=== PATIENT | male | born 1975 | race Caucasian/White ===

== ENCOUNTER 2018-11-01 11:33 | Emergency (ER) | payer MEDICAID ==
[~2018-11-01] VITALS: Ht 190.5 cm; Wt 92.0 kg
[2018-11-01 11:36] VITALS: BP 125/77
[2018-11-01] MEDS ORDERED: cholesterol (11:51)
--- NOTE | 2018-11-01 12:05 | NUR ---
Patient given discharge instructions and they have confirmed that they understand the instructions. Patient ambulatory with steady gait.
== END 2018-11-01 12:51 | disposition home or self-care (01) ==
LOC: ED 12:40
DX: G56.22 Lesion of ulnar nerve, left upper limb (principal); Z88.0 Allergy status to penicillin; Z21 Asymptomatic human immunodeficiency virus [HIV] infection status; Z86.59 Personal history of other mental and behavioral disorders
CPT/HCPCS: 99283

== ENCOUNTER 2018-11-19 06:10 | Inpatient (IN) | payer MEDICAID, OTHER ==
[~2018-11-19] VITALS: Ht 193 cm; Wt 99.1 kg
[~2018-11-19 06:10] MED LIST: cholesterol
[2018-11-19] MEDS ORDERED: SODIUM CHLORIDE 0.9% 1,000ML IVBOLUS ONE ×2 (06:30→09:00)
[2018-11-19] MEDS ORDERED: SODIUM CHLORIDE FLUSH 10ML SYR IVF ONE (06:30)
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
--- NOTE | 2018-11-19 06:49 | NUR ---
RECEIVED REPORT FROM CLOTILDE SANCHEZ.
[2018-11-19 06:51] LABS: ALANINE AMINOTRANSFERASE 225 U/L (12-78); ALBUMIN 3.1 g/dL (3.4-5.0); ANION GAP 7 mmol/L (5-15); CHLORIDE 110 mmol/L (98-107); CREATININE 1.57 mg/dL (0.7-1.3)
[2018-11-19 06:55] LABS: ALKALINE PHOSPHATASE 344 U/L (45-117); BILIRUBIN,TOTAL 0.7 mg/dL (0.2-1.0); TOTAL PROTEIN 5.6 g/dL (6.4-8.2); TROPONIN I < 0.015 ng/mL (0.000-0.045)
--- NOTE | 2018-11-19 07:00 | NUR ---
PT RESTING IN BED.
[2018-11-19 07:46] LABS: INTERNATIONAL NORMALIZED RATIO 1.29 (0.93-1.1); PROTHROMBIN TIME 13.4 Seconds (9.6-11.5)
[2018-11-19] MEDS ORDERED: OMNIPAQUE 350 MG/ML, 100ML BOTTLE ONE (07:52)
[2018-11-19 08:16] LABS: D-DIMER 35.2 ug/mlFEU (0.00-0.52)
[2018-11-19 08:26] LABS: MEAN CORPUSCULAR HEMOGLOBIN 30.3 pg (27.5-34.5); MEAN CORPUSCULAR HGB CONC 33.3 g/dL (33.2-36.2); MEAN CORPUSCULAR VOLUME 91.2 fL (81-97); PLATELET COUNT 109 x10^3/uL (130-400); RED BLOOD COUNT 4.72 x10^6/uL (4.38-5.82); RED CELL DISTRIBUTION WIDTH 14.7 % (9.4-14.8)
[2018-11-19 08:27] LABS: MD YES
--- NOTE | 2018-11-19 08:35 | NUR ---
blood cultures ordered and 3rd liter of fluid started. urine walked to lab.
[2018-11-19 08:50] LABS: BAND#(MANUAL) 0.15 x10^3/uL; BANDS%(MANUAL) 10 % (0-7); EOS#(MANUAL) 0.03 x10^3/uL (0.0-0.4); EOS% (MANUAL) 2 % (1-7); LYMPH#(MANUAL) 0.12 x10^3/uL (1-3.4); LYMPHS% (MANUAL) 8 % (22-44); MONOS#(MANUAL) 0.03 x10^3/uL (0.3-2.7); MONOS% (MANUAL) 2 % (2-9); MYELOCYTES# (MANUAL) 0.03 x10^3/uL (0-0); MYELOCYTES% (MANUAL) 2 % (0-0); NRBC % (MANUAL) 2 % (0-1); SEG#(MANUAL) 1.14 x10^3/uL (1.8-6.8); SEGS% (MANUAL) 76 % (42-75)
--- NOTE | 2018-11-19 08:53 | NUR ---
blood cultures drawn x 2.
[2018-11-19 08:55] LABS: <RBC MORPHOLOGY> NORMAL
[2018-11-19 08:56] LABS: <PLATELET ESTIMATE> DECREASED; <PLT MORPHOLOGY> NORMAL PLT MORPH
[2018-11-19 08:56] LABS: AMPHETAMINE SCREEN, URINE Positive (Negative); BARBITURATE SCREEN, URINE Negative (Negative); BENZODIAZEPINE SCREEN, URINE Negative (Negative); CANNABINOID SCREEN, URINE Positive (Negative); COCAINE SCREEN, URINE Negative (Negative); METHADONE SCREEN, URINE Negative (Negative); OPIATE SCREEN, URINE Negative (Negative)
[2018-11-19] MEDS ORDERED: CEFTRIAXONE PMX 1GM/50ML 50 ML IVPB ONE (09:00)
[2018-11-19] MEDS ORDERED: CEFTRIAXONE PMX 1GM/50ML 50 ML ONE (09:00)
--- NOTE | 2018-11-19 09:03 | NUR ---
ANTIBIOTICS HUNG PER MD ORDER.
[2018-11-19 09:22] LABS: ALBUMIN 3.1 g/dL (3.4-5.0); BILIRUBIN, DIRECT 0.4 mg/dL (0.1-0.2)
[2018-11-19 09:24] LABS: BILIRUBIN,INDIRECT 0.3 mg/dL (0.0-2.0); BILIRUBIN,TOTAL 0.7 mg/dL (0.2-1.0); TOTAL PROTEIN 5.6 g/dL (6.4-8.2)
[2018-11-19] MEDS ORDERED: ABAC1TAB14 PO (09:31)
--- NOTE | 2018-11-19 09:36 | NUR ---
DR. ESCOBAR AT BEDSIDE.
[2018-11-19 09:43] LABS: CULTURE INDICATED? NO; MICROSCOPIC AUTO
--- NOTE | 2018-11-19 10:18 | NUR ---
PT GIVEN WATER AND TOLERATING WATER. VITALS ENTERED. PT RESTING IN BED. 3RD LITER COMPLETE.D
--- NOTE | 2018-11-19 10:40 | NUR ---
PT AWAITING BED FOR CCU. PT RESTING IN BED AT THIS TIME.
--- NOTE | 2018-11-19 11:22 | NUR ---
PT SLEEPING IN BED AT THIS TIME.
--- NOTE | 2018-11-19 12:00 | NUR ---
REPORT RECEIVED FROM DANIEL DELAROSA AT BEDSIDE. PT SLEEPING, RESPS EVEN AND UNLABORED. NSR ON SUPERVISOR YARD WITH NO ECTOPY NOTED. THIS RN TO ASSUME CARE AT THIS TIME.
--- NOTE | 2018-11-19 12:02 | NUR ---
report given to jana perkins
--- NOTE | 2018-11-19 12:30 | NUR ---
HOSPITALIST REQUESTS CENTRAL LINE PLACEMENT, PT MOVED TO TRAUMA 2 FOR LINE PLACEMENT. PT PLACED ON HOSPITAL BED.
--- NOTE | 2018-11-19 12:56 | NUR ---
HOSPITALIST MD SMITHU AT BEDSIDE TO ASSESS THE PATIENT AT THIS TIME. CENTRAL LINE PLACEMENT ON HOLD PER MD AT THIS TIME. PT IS A&OX4, RESPS EVEN AND UNLABORED, SINUS TACH RATE 90'S WITH NO ECTOPY ON MONITOR. PT'S ONLY COMPLAINT AT THIS TIME IS BILATERAL HAND PAIN. ALL MONITORS IN PLACE. PT CONVERSING WITH MD SAUCEDA, PT SPEAKING IN FULL SENTENCES WITHOUT DIFFICULTY.
[2018-11-19] MEDS ORDERED: NITROGLYCERIN 0.4 MG/SPRAY SL PRN (13:00)
[2018-11-19] MEDS ORDERED: VANCOMYCIN PER PHARMACY MC PRN (13:00)
[2018-11-19] MEDS ORDERED: PROMETHAZINE 25 MG/ML, 1ML IM PRN (13:00)
[2018-11-19] MEDS ORDERED: ONDANSETRON ODT 4 MG PO PRN (13:00)
[2018-11-19] MEDS ORDERED: PHARMACY MAY ADJ FOR RENAL FX MC PRN (13:00)
[2018-11-19] MEDS ORDERED: NITROGLYCERIN 0.4 MG BOTTLE (25 TABS) SL PRN (13:00)
[2018-11-19] MEDS ORDERED: VANCOMYCIN PMX 1GM/200ML 200 ML IV ONE (13:00)
[2018-11-19] MEDS ORDERED: LORazepam 2 MG/ML, 1ML IVPush PRN (13:00)
--- NOTE | 2018-11-19 13:00 | NUR ---
this RN discussed d dimer result with MD Guardado and MD Bhandari. Per MD Bhandari, CT aorta has ruled out PE.
--- NOTE | 2018-11-19 13:38 | NUR ---
report given to DANIEL Madrigal. pt awaiting transport to room 425.
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
[2018-11-19] MEDS: SODIUM CHLORIDE 0.9% 1,000 ML IV SCH (14:39)
[2018-11-19] MEDS: HEPARIN 5,000 UNITS/ML, 1ML SQ SCH ×2 (14:49→23:07)
[2018-11-19] MEDS: PIPERACILLIN/TAZO/PMX 3.375GM 50 ML IV SCH ×2 (14:49→21:15)
[2018-11-19 14:55] VITALS: BP 110/76
[2018-11-19] MEDS ORDERED: PHARMACOKINETIC MONITORING MC PRN (16:00)
[2018-11-19] MEDS: VANCOMYCIN 2,000 MG in SODIUM CHLORIDE 0.9% 500 ML IV SCH (16:08)
[2018-11-19] MEDS: OXYcodone IR 5MG TABLET PO PRN ×2 (16:08→21:12)
[2018-11-19 17:09] LABS: TROPONIN I 0.018 ng/mL (0.000-0.045)
[2018-11-19] MEDS ORDERED: GLUCAGON 1 MG IM PRN (17:30)
[2018-11-19] MEDS ORDERED: DEXTROSE 50%, 50ML SYRINGE IVPush PRN (17:30)
[2018-11-19] MEDS ORDERED: DEXTROSE 4 GM TAB.CHEW PO PRN (17:30)
[2018-11-19] MEDS ORDERED: MORPHINE SULFATE 4 MG/ML, 1ML IVPush ONE (18:00)
[2018-11-19] MEDS: SODIUM CHLORIDE FLUSH 10ML SYR IVF SCH (21:21)
[2018-11-19] MEDS: INSULIN LISPRO 100 UNITS/ML, PEN SQ-INSULIN SCH (21:21)
[2018-11-19 21:28] VITALS: BP 99/63
[2018-11-19 21:51] LABS: TROPONIN I 0.023 ng/mL (0.000-0.045)
[2018-11-20] MEDS: SODIUM CHLORIDE 0.9% 1,000 ML IV SCH ×2 (01:27→09:29)
[2018-11-20 01:30] VITALS: BP 89/55
[2018-11-20] MEDS ORDERED: SODIUM CHLORIDE 0.9%, 500ML IVBOLUS ONE (02:00)
[2018-11-20 02:04] VITALS: BP 95/60
[2018-11-20] MEDS: PIPERACILLIN/TAZO/PMX 3.375GM 50 ML IV SCH ×4 (03:07→20:42)
[2018-11-20] MEDS: VANCOMYCIN 2,000 MG in SODIUM CHLORIDE 0.9% 500 ML IV SCH (04:24)
[2018-11-20 05:49] LABS: MEAN CORPUSCULAR HEMOGLOBIN 31.1 pg (27.5-34.5); MEAN CORPUSCULAR HGB CONC 33.9 g/dL (33.2-36.2); MEAN CORPUSCULAR VOLUME 91.7 fL (81-97); MEAN PLATELET VOLUME 9.4 fL (7.4-10.4); PLATELET COUNT 103 x10^3/uL (130-400); RED BLOOD COUNT 4.38 x10^6/uL (4.38-5.82); RED CELL DISTRIBUTION WIDTH 15.1 % (9.4-14.8)
[2018-11-20 06:12] LABS: CHLORIDE 112 mmol/L (98-107)
[2018-11-20 06:20] LABS: ALANINE AMINOTRANSFERASE 186 U/L (12-78); ALBUMIN 2.5 g/dL (3.4-5.0); ALKALINE PHOSPHATASE 94 U/L (45-117); ANION GAP 6 mmol/L (5-15); BILIRUBIN,TOTAL 0.5 mg/dL (0.2-1.0); CALCIUM 7.4 mg/dL (8.5-10.1); CHOLESTEROL, TOTAL 84 mg/dL (140-239); CREATININE 1.03 mg/dL (0.7-1.3); HDL CHOL % 50 % (26-37); HDL CHOLESTEROL (DIRECT) 42 mg/dL (40-60); LDL CHOLESTEROL,CALCULATED 21 mg/dL (54-169); LDL/HDL RATIO 0.5 (0.5-3.0); TOTAL IRON BINDING CAPACITY 252 mcg/dL (250-450); TOTAL PROTEIN 5.1 g/dL (6.4-8.2); TRIGLYCERIDES 104 mg/dL (50-200); VLDL CHOLESTEROL 21 mg/dL (0-25)
[2018-11-20 06:51] LABS: MD YES
[2018-11-20 06:53] LABS: BAND#(MANUAL) 2.74 x10^3/uL; BANDS%(MANUAL) 13 % (0-7); EOS#(MANUAL) 0.63 x10^3/uL (0.0-0.4); EOS% (MANUAL) 3 % (1-7); LYMPH#(MANUAL) 2.95 x10^3/uL (1-3.4); LYMPHS% (MANUAL) 14 % (22-44); MONOS#(MANUAL) 1.27 x10^3/uL (0.3-2.7); MONOS% (MANUAL) 6 % (2-9); SEGS% (MANUAL) 64 % (42-75)
[2018-11-20 06:54] LABS: <PLATELET ESTIMATE> DECREASED; <RBC MORPHOLOGY> NORMAL; LARGE PLATELETS 1+
[2018-11-20 06:56] LABS: % IRON SATURATION 8 % (20-55); CREATINE KINASE, TOTAL 50 U/L (39-308); IRON LEVEL 19 mcg/dL (65-175)
[2018-11-20 08:00] VITALS: BP 107/58
[2018-11-20] MEDS: SODIUM CHLORIDE FLUSH 10ML SYR IVF SCH ×2 (09:00→20:43)
[2018-11-20] MEDS: PANTOPRAZOLE 40 MG IV IVPush SCH (09:12)
[2018-11-20] MEDS: HEPARIN 5,000 UNITS/ML, 1ML SQ SCH ×3 (09:13→22:55)
[2018-11-20] MEDS: INSULIN LISPRO 100 UNITS/ML, PEN SQ-INSULIN SCH ×4 (09:28→20:43)
[2018-11-20 09:38] LABS: MEAN CORPUSCULAR HGB CONC 32.7 g/dL (33.2-36.2); MEAN CORPUSCULAR VOLUME 91.6 fL (81-97); MEAN PLATELET VOLUME 9.6 fL (7.4-10.4); PLATELET COUNT 108 x10^3/uL (130-400); RED BLOOD COUNT 4.25 x10^6/uL (4.38-5.82); RED CELL DISTRIBUTION WIDTH 15.2 % (9.4-14.8)
[2018-11-20 09:53] LABS: MD YES
[2018-11-20 10:46] LABS: <RBC MORPHOLOGY> NORMAL; BAND#(MANUAL) 2.05 x10^3/uL; BANDS%(MANUAL) 10 % (0-7); LYMPH#(MANUAL) 2.46 x10^3/uL (1-3.4); LYMPHS% (MANUAL) 12 % (22-44); MONOS#(MANUAL) 1.23 x10^3/uL (0.3-2.7); MONOS% (MANUAL) 6 % (2-9); SEG#(MANUAL) 14.76 x10^3/uL (1.8-6.8); SEGS% (MANUAL) 72 % (42-75)
[2018-11-20 10:47] LABS: <PLATELET ESTIMATE> DECREASED; <PLT MORPHOLOGY> NORMAL PLT MORPH
[2018-11-20 12:00] VITALS: BP 105/62
[2018-11-20] MEDS: OXYcodone IR 5MG TABLET PO PRN (12:55)
[2018-11-20 16:00] VITALS: BP 114/68
[2018-11-20 17:42] LABS: MICROSCOPIC NOT IND
[2018-11-20 19:17] LABS: RAPID INFLUENZA A Negative (Negative); RAPID INFLUENZA B Negative (Negative)
[2018-11-20 19:32] VITALS: BP 132/84
[2018-11-21 00:37] VITALS: BP 114/74
[2018-11-21 02:54] VITALS: BP 116/72
[2018-11-21] MEDS: PIPERACILLIN/TAZO/PMX 3.375GM 50 ML IV SCH ×4 (02:54→21:30)
[2018-11-21] MEDS: INSULIN LISPRO 100 UNITS/ML, PEN SQ-INSULIN SCH ×4 (07:00→21:02)
[2018-11-21 07:07] VITALS: BP 143/93
[2018-11-21 07:42] LABS: MEAN CORPUSCULAR HEMOGLOBIN 29.9 pg (27.5-34.5); MEAN CORPUSCULAR HGB CONC 32.4 g/dL (33.2-36.2); MEAN CORPUSCULAR VOLUME 92.1 fL (81-97); MEAN PLATELET VOLUME 9.8 fL (7.4-10.4); PLATELET COUNT 137 x10^3/uL (130-400); RED BLOOD COUNT 4.68 x10^6/uL (4.38-5.82); RED CELL DISTRIBUTION WIDTH 15.4 % (9.4-14.8)
[2018-11-21 07:46] LABS: ALANINE AMINOTRANSFERASE 150 U/L (12-78); ALBUMIN 2.7 g/dL (3.4-5.0); ANION GAP 4 mmol/L (5-15); CALCIUM 8.4 mg/dL (8.5-10.1); CHLORIDE 112 mmol/L (98-107); CREATININE 1.04 mg/dL (0.7-1.3)
[2018-11-21 07:58] LABS: ALKALINE PHOSPHATASE 105 U/L (45-117); BILIRUBIN,TOTAL 0.4 mg/dL (0.2-1.0); TOTAL PROTEIN 5.8 g/dL (6.4-8.2)
[2018-11-21] MEDS: HEPARIN 5,000 UNITS/ML, 1ML SQ SCH ×3 (08:04→23:14)
[2018-11-21] MEDS: PANTOPRAZOLE 40 MG IV IVPush SCH (08:04)
[2018-11-21 08:42] LABS: MD YES
[2018-11-21 08:43] LABS: BAND#(MANUAL) 0.75 x10^3/uL; BANDS%(MANUAL) 5 % (0-7); EOS#(MANUAL) 0.15 x10^3/uL (0.0-0.4); EOS% (MANUAL) 1 % (1-7); LYMPH#(MANUAL) 3.75 x10^3/uL (1-3.4); LYMPHS% (MANUAL) 25 % (22-44); METAMYELOCYTES# (MANUAL) 0.15 x10^3/uL (0-0); METAMYELOCYTES% (MANUAL) 1 % (0-1); MONOS#(MANUAL) 0.75 x10^3/uL (0.3-2.7); MONOS% (MANUAL) 5 % (2-9); SEG#(MANUAL) 9.45 x10^3/uL (1.8-6.8); SEGS% (MANUAL) 63 % (42-75)
[2018-11-21 08:44] LABS: <PLATELET ESTIMATE> ADEQUATE; <PLT MORPHOLOGY> NORMAL PLT MORPH; <RBC MORPHOLOGY> NORMAL
[2018-11-21] MEDS ORDERED: REGADENOSON 0.4 MG/5 ML SYRINGE ONE (08:54)
[2018-11-21] MEDS: SODIUM CHLORIDE FLUSH 10ML SYR IVF SCH ×2 (09:00→21:02)
[2018-11-21 12:00] VITALS: BP 128/83
[2018-11-21 15:00] VITALS: BP 131/85
[2018-11-21 19:55] VITALS: BP 128/84
[2018-11-22 00:35] VITALS: BP 125/76
[2018-11-22] MEDS: PIPERACILLIN/TAZO/PMX 3.375GM 50 ML IV SCH ×4 (03:30→21:45)
[2018-11-22 07:20] VITALS: BP 121/88
[2018-11-22] MEDS: HEPARIN 5,000 UNITS/ML, 1ML SQ SCH ×3 (08:00→23:00)
[2018-11-22] MEDS: PANTOPRAZOLE 40 MG IV IVPush SCH (08:00)
[2018-11-22] MEDS: INSULIN LISPRO 100 UNITS/ML, PEN SQ-INSULIN SCH ×4 (08:37→20:14)
[2018-11-22 08:50] LABS: MEAN CORPUSCULAR HEMOGLOBIN 30.1 pg (27.5-34.5); MEAN CORPUSCULAR HGB CONC 32.9 g/dL (33.2-36.2); MEAN CORPUSCULAR VOLUME 91.6 fL (81-97); MEAN PLATELET VOLUME 9.6 fL (7.4-10.4); PLATELET COUNT 184 x10^3/uL (130-400); RED BLOOD COUNT 5.02 x10^6/uL (4.38-5.82); RED CELL DISTRIBUTION WIDTH 15.1 % (9.4-14.8)
[2018-11-22] MEDS: SODIUM CHLORIDE FLUSH 10ML SYR IVF SCH ×2 (08:50→21:45)
[2018-11-22 08:55] LABS: ALANINE AMINOTRANSFERASE 115 U/L (12-78); ALBUMIN 2.8 g/dL (3.4-5.0); ANION GAP 8 mmol/L (5-15); CALCIUM 8.7 mg/dL (8.5-10.1); CHLORIDE 108 mmol/L (98-107); CREATININE 1.11 mg/dL (0.7-1.3)
[2018-11-22 08:57] LABS: ALKALINE PHOSPHATASE 104 U/L (45-117); BILIRUBIN,TOTAL 0.3 mg/dL (0.2-1.0); TOTAL PROTEIN 6.3 g/dL (6.4-8.2)
[2018-11-22] MEDS: ABACAVIR 300 MG TABLET PO SCH (09:00)
[2018-11-22 09:15] LABS: BASOPHILS # (AUTO) 0.03 x10^3/uL (0-0.1); BASOPHILS % (AUTO) 0 % (0-1); EOSINOPHILS % (AUTO) 2 % (1-7); LYMPHOCYTES # (AUTO) 2.93 x10^3/uL (1-3.4); LYMPHOCYTES % (AUTO) 25 % (22-44); MD SCAN; MONOCYTES # (AUTO) 0.89 x10^3/uL (0.2-0.8); MONOCYTES % (AUTO) 8 % (2-9); NEUTROPHILS # (AUTO) 7.46 x10^3/uL (1.8-6.8); NEUTROPHILS % (AUTO) 65 % (42-75)
[2018-11-22] MEDS: DOLUTEGRAVIR 50MG TAB PO SCH (09:40)
[2018-11-22] MEDS: LAMIVUDINE 150 MG TABLET PO SCH (09:42)
[2018-11-22 16:11] LABS: ANA SCREEN NEGATIVE (Negative)
[2018-11-22] MEDS: CARVEDILOL 3.125 MG TABLET PO SCH (18:23)
[2018-11-22 20:22] VITALS: BP 125/83
[2018-11-23 02:00] VITALS: BP 125/79
[2018-11-23] MEDS: PIPERACILLIN/TAZO/PMX 3.375GM 50 ML IV SCH ×2 (03:45→09:22)
[2018-11-23 05:48] VITALS: BP 120/72
[2018-11-23] MEDS ORDERED: ASPIRIN 81 MG TABLET EC PO SCH (06:00)
[2018-11-23] MEDS ORDERED: PANTOPROZOLE 40MG TABLET PO SCH (06:00)
[2018-11-23] MEDS: CARVEDILOL 3.125 MG TABLET PO SCH (06:07)
[2018-11-23 08:06] VITALS: BP 123/73
[2018-11-23] MEDS: INSULIN LISPRO 100 UNITS/ML, PEN SQ-INSULIN SCH (08:37)
[2018-11-23 08:42] LABS: BASOPHILS # (AUTO) 0.06 x10^3/uL (0-0.1); BASOPHILS % (AUTO) 1 % (0-1); EOSINOPHILS # (AUTO) 0.14 x10^3/uL (0-0.4); EOSINOPHILS % (AUTO) 2 % (1-7); LYMPHOCYTES # (AUTO) 3.08 x10^3/uL (1-3.4); LYMPHOCYTES % (AUTO) 35 % (22-44); MD NO; MEAN CORPUSCULAR HEMOGLOBIN 30.5 pg (27.5-34.5); MEAN CORPUSCULAR HGB CONC 33.5 g/dL (33.2-36.2); MEAN CORPUSCULAR VOLUME 91.2 fL (81-97); MEAN PLATELET VOLUME 9.5 fL (7.4-10.4); MONOCYTES # (AUTO) 0.39 x10^3/uL (0.2-0.8); MONOCYTES % (AUTO) 5 % (2-9); NEUTROPHILS # (AUTO) 5.15 x10^3/uL (1.8-6.8); NEUTROPHILS % (AUTO) 58 % (42-75); PLATELET COUNT 215 x10^3/uL (130-400); RED BLOOD COUNT 5.39 x10^6/uL (4.38-5.82); RED CELL DISTRIBUTION WIDTH 14.9 % (9.4-14.8)
[2018-11-23] MEDS ORDERED: LISINOPRIL 5 MG TABLET PO SCH (09:00)
[2018-11-23] MEDS: HEPARIN 5,000 UNITS/ML, 1ML SQ SCH (09:22)
[2018-11-23] MEDS: LAMIVUDINE 150 MG TABLET PO SCH (09:23)
[2018-11-23] MEDS: DOLUTEGRAVIR 50MG TAB PO SCH (09:24)
[2018-11-23] MEDS: ABACAVIR 300 MG TABLET PO SCH (09:24)
[2018-11-23] MEDS: SODIUM CHLORIDE FLUSH 10ML SYR IVF SCH (09:25)
[2018-11-23 10:23] LABS: ANION GAP 11 mmol/L (5-15); CALCIUM 8.7 mg/dL (8.5-10.1); CHLORIDE 108 mmol/L (98-107)
[2018-11-23 10:28] LABS: ALANINE AMINOTRANSFERASE 119 U/L (12-78); ALKALINE PHOSPHATASE 104 U/L (45-117); BILIRUBIN,TOTAL 0.6 mg/dL (0.2-1.0); TOTAL PROTEIN 6.8 g/dL (6.4-8.2)
[2018-11-23] MEDS ORDERED: NITR0.4T SL (11:10)
[2018-11-23] MEDS ORDERED: AMOX1TAB12 PO (11:10)
[2018-11-23] MEDS ORDERED: ASPI81TA45 PO (11:10)
[2018-11-23] MEDS ORDERED: LISI5TAB7 PO (11:10)
[2018-11-23] MEDS ORDERED: PANT40TA5 PO (11:10)
[2018-11-23 14:37] LABS: RAPID PLASMA REAGIN Nonreactive (Nonreactive)
[2018-11-23] MEDS ORDERED: AMOXICILLIN/CLAV 875-125MG TABLET PO SCH (21:00)
== END 2018-11-23 12:42 | disposition home or self-care (01) | DRG 871 ==
LOC: ED 09:11 → EDIP 09:18 → 4WST 14:10 → DCLOUNGE 11-23 12:13
PROVIDERS: ADMIT Internal Medicine; ATTEND Internal Medicine
DX: A41.9 Sepsis, unspecified organism (principal); I71.00 Dissection of unspecified site of aorta; B17.9 Acute viral hepatitis, unspecified; F31.30 Bipolar disorder, current episode depressed, mild or moderate severity, unspecified; I42.9 Cardiomyopathy, unspecified; I50.20 Unspecified systolic (congestive) heart failure; N17.9 Acute kidney failure, unspecified; R07.89 Other chest pain; E11.41 Type 2 diabetes mellitus with diabetic mononeuropathy; D69.6 Thrombocytopenia, unspecified; E78.5 Hyperlipidemia, unspecified; F12.10 Cannabis abuse, uncomplicated; F15.10 Other stimulant abuse, uncomplicated; F17.210 Nicotine dependence, cigarettes, uncomplicated; F43.10 Post-traumatic stress disorder, unspecified; I11.0 Hypertensive heart disease with heart failure; R31.29 Other microscopic hematuria; I95.9 Hypotension, unspecified; Z88.0 Allergy status to penicillin; Z79.82 Long term (current) use of aspirin; Z88.8 Allergy status to other drugs, medicaments and biological substances; Z79.899 Other long term (current) drug therapy
CPT/HCPCS: 36415; 71045; 71275; 72141; 72146; 72148; 74177; 78452; 80053; 80061; 80074; 80076; 80307; 81001; 81003; 82550; 82728; 82962; 83036; 83540; 83550; 83605; 83735; 84100; 84145; 84443; 84484; 85025; 85379; 85610; 85730; 86038; 86361; 86592; 86738; 86790; 87040; 87400; 87536; 87633; 93005; 93017; 93306; 96360; 96361; 99291; G0378; J0696; J1644; J2543; J2785; J3370; Q9967; A9502; C9113; C9898; J1815; J7030; J7040